=== PATIENT | male | born 1955 | race Caucasian/White ===

== ENCOUNTER 2024-10-13 18:55 | Observation (INO) ==
[2024-10-13 19:32] LABS: Albumin Globulin Ratio 2.1 (0.9-2); Albumin Level 4.7 gm/dl (3.4-5.0); BUN Creatinine Ratio 15.3 (10-20); Bilirubin,Total 3.1 mg/dl (0.2-1.0); Calcium 8.9 mg/dl (8.6-10.3); Creatinine Clr Calc Pharmacy 102.3 ml/min; Globulin 2.2 gm/dl (2.5-4.0); Total Protein 6.9 gm/dl (6.0-8.3)
[2024-10-13 20:12] LABS: Hematocrit (blood only) 44.5 % (42.0-52.0); Hemoglobin 15.8 g/dl (14.0-18.0); Mean Corpuscular Hemoglobin 30.6 pg (25.0-34.0); Mean Corpuscular Hgb Conc 35.5 g/dL (32.0-36.0); Mean Corpuscular Volume 86.1 fL (80.0-100.0); Mean Platelet Volume 10.5 fL (9.4-12.4); Platelet Count 245 K/uL (130-400); RDW Coefficient of Variation 13.4 % (11.5-14.5); RDW Standard Deviation 42.4 fL (36.4-46.3); Red Blood Count 5.17 M/uL (4.70-6.10); White Blood Count 21.39 K/ul (4.8-10.8)
[2024-10-13 20:33] LABS: Basophils # (auto) 0.06 K/uL (0.00-0.20); Basophils % (auto) 0.3 %; Eosinophils # (auto) 0.01 K/uL (0.00-0.50); Immature Granulocytes # (auto) 0.08 K/uL (0.01-0.20); Immature Granulocytes % (auto) 0.4 %; Lymphocytes # (auto) 0.53 K/uL (1.20-3.40); Lymphocytes % (auto) 2.5 %; Monocytes # (auto) 1.11 K/uL (0.11-0.59); Monocytes % (auto) 5.2 %; Neutrophils % (auto) 91.6 %
[2024-10-13] MEDS: ONDANSETRON INJ 2 MG/ML 2 ML VIAL IV STA (20:52)
[2024-10-13] MEDS: MoRPHine SULFATE 4 MG/ML 1 ML CARP\\VIAL IV STA (20:52)
[2024-10-13] MEDS: SODIUM CHLORIDE 0.9% 1,000 ML IV ONE (20:55)
--- NOTE | 2024-10-13 20:57 | Emergency Department Note ---
Impression & Plan Acute appendicitis ED Provider Note Diagnosis: Acute appendicitis Disposition: Admission CHIEF COMPLAINT: Abdominal pain HPI: Patient is a 69-year-old male presenting with acute abdominal pain. Patient states symptoms have been starting over the past 2 to 3 days time. Patient states the pain is always 2-3 out of 10 but intensifies at times. Patient states nausea without vomiting. Patient states no change in bowel habitus. Patient denies any urinary symptoms testicular pain or swelling. Patient states he still has his gallbladder and appendix. Patient has no sick contacts. PAST MEDICAL HISTORY: See Below PAST SURGICAL HISTORY: See Below SOCIAL HISTORY: See Below HOME MEDICATIONS: See Below ALLERGIES: See Below VITALS: See Below PHYSICAL EXAMINATION: GENERAL: Moderate distress EYE EXAM: Normal conjunctiva. OROPHARYNX: Moist mucus membranes. Grossly normal dentition. NECK: Supple, LUNGS: Clear to auscultation. Normal chest wall mechanics. HEART: NSR ABDOMEN: Abdomen soft, moderate tenderness right lower quadrant BACK: No CVA TTP. SKIN: No rashes and no bruising. UPPER EXTREMITIES: Upper extremities are grossly normal LOWER EXTREMITIES: Grossly normal, no edema. NEURO EXAM: A&O x3,, normal speech, moves all 4 extremities PSYCH: Cooperative MEDICAL DECISION MAKING: History obtained from: Patient, ER Course: Patient is a 69-year-old male presenting with right lower quadrant abdominal pain. Patient having nausea and vomiting. Patient found to be febrile today and have a leukocytosis of 20. Patient was given IV Zosyn. Patient had CT scan performed of the abdomen and pelvis which shows acute appendicitis. Patient kept n.p.o. and discussion was had with general surgery physician resident care assistant. They reached out to the on-call attending surgeon and plan for appendectomy tonight. Patient accepted to their service further treatment and evaluation Labs (independently interpreted) are significant for: Leukocytosis Medications given: Normal saline, morphine, Zofran, Zosyn Consultants: Dr. Pascual Triage Nursing notes reviewed and agree them. Vital Signs: reviewed and remarkable for: no significant abnormalities Past Med/Surg History Problem List (Updated 10/14/24 @ 00:29 by Ming Zapata DO) Acute appendicitis (Acute) Appendicitis Other obesity due to excess calories BMI 33.0-33.9,adult HTN, goal below 140/90 Idiopathic polyneuropathy Chronic insomnia BPH (benign prostatic hyperplasia) Copper deficiency Vitamin D deficiency Hypermagnesemia Hyperlipidemia Left knee DJD Surgical History S/P vasectomy History of prostate surgery REMOVAL PER PT S/P rotator cuff surgery S/P wisdom tooth extraction Family History Father Myocardial infarction Mother Hypertension Denies family history of Ovarian cancer Prostate cancer Diabetes Breast cancer Colorectal cancer Social History Smoking Status: Never smoker Do You Dip or Chew Tobacco: No; Hx Alcohol Use: No Hx Substance Use: No Preferred Language: Singaporean Communication Ability: Effective Visual Impairment: No Limitations Hearing Ability: Use of Hearing Aid marital status: Current Living Situation: Spouse Current Living Situation Comment: lives with current occupational status: employed current occupation: professor [employer] Feels Safe at Home: Yes Childhood Exposure to Second-Hand Smoke: No Diet: regular caffeine: Yes Dental Care, Regularly: Yes Physical Activity Frequency: Does not Exercise Seatbelt Use: always Sunscreen Use: Yes Allergies Allergies Allergy/AdvReac Type Severity Reaction Status Date / Time tadalafil [From Cialis] Allergy Severe leg pain Verified 10/13/24 23:13 vardenafil [From Levitra] Allergy Intermediate leg pain Verified 10/13/24 09:40 temazepam [From Restoril] Allergy Unknown Swelling Verified 10/13/24 09:40 of Lip/Tongue/Throat gabapentin AdvReac Unknown Dizziness Verified 10/13/24 09:40 [id number] Reductase AdvReac Unknown Dizziness Verified 10/13/24 09:40 Inhibitor Home Meds Home Medications Medication Instructions Recorded Confirmed alpha lipoic acid 600 mg capsule 600 mg PO DAILY 12/25/23 10/13/24 chlorhexidine gluconate 0.12 % 15 ml buccal DAILY 12/25/23 10/13/24 mouthwash cholecalciferol (vitamin D3) 125 125 mcg PO DAILY 12/25/23 10/13/24 mcg (5,000 unit) capsule melatonin 10 mg capsule 10 mg PO HS PRN 12/25/23 10/13/24 mecobalamin (vitamin B12) 500 mcg mcg PO 04/01/24 10/13/24 chewable tablet evolocumab 140 mg/mL subcutaneous mg subcut 10/03/24 10/13/24 pen injector (Astrid Negrete) Previous Rx's Medication Instructions Recorded bupropion HCl 150 mg tablet,12 hr 150 mg PO QAM #90 ea 04/01/24 sustained-release ezetimibe 10 mg tablet 10 mg PO DAILY #90 tabs 06/02/24 benzonatate 100 mg capsule See Rx Instructions .Route 07/21/24 .COMPLEX cough #30 caps trazodone 100 mg tablet 100 mg PO DAILY #30 tabs 07/29/24 losartan 50 mg tablet 50 mg PO DAILY #90 tabs 08/18/24 magnesium glycinate 200 mg (2 x 100 mg magnesium) PO 08/22/24 DAILY #30 caps doxycycline hyclate 100 mg capsule 100 mg PO BID 10 days #20 caps 10/13/24 Results & Data (ED) Vital Signs Vital Signs - 24 hr 10/13/24 18:59 10/13/24 20:31 10/13/24 20:32 Temperature 36.9 C Temperature Source Oral Pulse Rate 109 H 115 H Pulse Rate [Apical] 116 H Respiratory Rate 18 16 Respiratory Effort / Characteristics Non-Labored Spontaneous Non-Labored Spontaneous Respiratory Depth Normal Respiratory Pattern Regular Blood Pressure 131/73 Blood Pressure [Right Arm] 149/82 H Blood Pressure Mean 92 Blood Pressure Mean [Right Arm] 104 Blood Pressure Position Sitting Pulse Oximetry 95 94 Oxygen Delivery Method Room Air Room Air Sepsis Recent Fever Within 48 Hours No Sepsis New/Unexplained Change in Mental Status N/A Sepsis Action Taken by Nursing No Action Required 10/13/24 21:46 10/13/24 22:21 10/14/24 00:00 Temperature 39.4 C H 37.9 C H 36.8 C Temperature Source Oral Oral Oral Pulse Rate Pulse Rate [Apical] 112 H Respiratory Rate 16 Respiratory Effort / Characteristics Respiratory Depth Respiratory Pattern Blood Pressure Blood Pressure [Right Arm] 127/80 Blood Pressure Mean Blood Pressure Mean [Right Arm] 95 Blood Pressure Position Pulse Oximetry 93 Oxygen Delivery Method Room Air Sepsis Recent Fever Within 48 Hours Sepsis New/Unexplained Change in Mental Status Sepsis Action Taken by Nursing Laboratory Data 10/13/24 19:05 10/13/24 19:05 Lab Results 10/13/24 10/13/24 10/13/24 Range/Units 19:05 20:46 21:42 WBC 21.39 H (4.8-10.8) K/ul RBC 5.17 (4.70-6.10) M/uL Hgb 15.8 (14.0-18.0) g/dl Hct 44.5 (42.0-52.0) % MCV 86.1 (80.0-100.0) fL MCH 30.6 (25.0-34.0) pg MCHC 35.5 (32.0-36.0) g/dL RDW Std Deviation 42.4 (36.4-46.3) fL RDW Coeff of Artur 13.4 (11.5-14.5) % Plt Count 245 (130-400) K/uL MPV 10.5 (9.4-12.4) fL Immature Gran % (Auto) 0.4 % Neut % (Auto) 91.6 % Lymph % (Auto) 2.5 % [place] % (Auto) 5.2 % Eos % (Auto) 0.0 % Baso % (Auto) 0.3 % Neut # (Auto) 19.60 H (1.40-6.50) K/uL Lymph # (Auto) 0.53 L (1.20-3.40) K/uL [place] # (Auto) 1.11 H (0.11-0.59) K/uL Eos # (Auto) 0.01 (0.00-0.50) K/uL Baso # (Auto) 0.06 (0.00-0.20) K/uL Immature Gran # (Auto) 0.08 (0.01-0.20) K/uL PT 12.1 H (9.0-12.0) Seconds INR 1.1 (0.9-1.1) APTT 33 H (21-31) Seconds PTT Ratio 1.2 Sodium 130 L (136-145) mmol/L Potassium 4.0 (3.5-5.1) mmol/L Chloride 99 (98-107) mmol/L Carbon Dioxide 24 (21-32) mmol/L Anion Gap 7 (3-11) BUN 11 (6-23) mg/dl Creatinine 0.72 (0.6-1.4) mg/dl Est Cr Clr Drug Dosing 102.3 ml/min eGFR 98.90 BUN/Creatinine Ratio 15.3 (10-20) Glucose 107 H (70-99(Fasting)) mg/dl Calcium 8.9 (8.6-10.3) mg/dl Total Bilirubin 3.1 H (0.2-1.0) mg/dl AST 24 (13-39) U/L ALT 24 (7-52) U/L Alkaline Phosphatase 54 (34-104) U/L Total Protein 6.9 (6.0-8.3) gm/dl Albumin 4.7 (3.4-5.0) gm/dl Globulin 2.2 L (2.5-4.0) gm/dl Albumin/Globulin Ratio 2.1 H (0.9-2) Lipase 8 L (11-82) U/L Urine Color Yellow Urine Appearance Clear (Clear) Urine pH 7.5 (4.5-7.5) Ur Specific [place] > 1.045 H (1.000-1.030) Urine Protein 1+ H (Negative) Urine Glucose (UA) Negative (Negative) Urine Ketones 2+ H (Negative) Urine Blood 1+ H (Negative) Urine Nitrite Negative (Negative) Urine Bilirubin Negative (Negative) Urine Urobilinogen Positive H (Negative) Ur Leukocyte Esterase Negative (Negative) Urine WBC (Auto) 0-5 (0-5) /hpf Urine RBC (Auto) 11-20 H (0-2) /hpf U Hyaline Cast (Auto) 0-2 (0-2) /lpf U Epithel Cells (Auto) 0-2 (0-2) /hpf Urine Bacteria (Auto) None Seen (None Seen) Anaplasma Smear See Comment Babesia Smear See Comment Lyme Disease Screen Negative (Negative) Administered Medications Discontinued Medications Sodium Chloride (Nss) 1,000 mls @ 999 mls/hr IV .Q1H1M ONE Stop: 10/13/24 21:46 Last Admin: 10/13/24 20:55 Dose: 999 mls/hr Documented By: TOM Acetaminophen (Ofirmev) 1,000 mg in 100 mls @ 400 mls/hr IV NOW STA Stop: 10/13/24 22:01 Last Infusion: 10/13/24 22:22 Dose: Infused Documented By: Admin: 10/13/24 22:05 Dose: 400 mls/hr Documented By: TOM Piperacillin Sod/Tazobactam Sod (Zosyn) 4.5 gm in 100 mls @ 200 mls/hr IV NOW ONE; Protocol Stop: 10/13/24 23:22 Last Admin: 10/13/24 23:36 Dose: 200 mls/hr Documented By: LORRI Ioversol (Optiray 320 100ml) 93 ml IV ONCE ONE Stop: 10/13/24 21:24 Last Admin: 10/13/24 21:23 Dose: 93 ml Documented By: LULU Morphine Sulfate (Morphine Sulfate 4 Mg/Ml 1 Ml Carp\Vial) 4 mg IV NOW STA Stop: 10/13/24 20:47 Last Admin: 10/13/24 20:52 Dose: 4 mg Documented By: TOM Ondansetron HCl (Ondansetron Inj 2 Mg/Ml 2 Ml Vial) 4 mg IV NOW STA Stop: 10/13/24 20:47 Last Admin: 10/13/24 20:52 Dose: 4 mg Documented By: TOM Imaging Data Radiologist's Impression: Abdomen/Pelvis CT 10/13/24 20:46 CR Exam(s): CT ABDOMEN + PELVIS With Contrast IV Amt: 93ml optiray 320 EXAM: CT Abdomen and Pelvis With Intravenous Contrast CLINICAL HISTORY: Reason for exam: RLQ pain, leukocytosis. TECHNIQUE: Axial computed tomography images of the abdomen and pelvis with intravenous contrast. CTDI is 27.7 mGy and DLP is 1314 mGy-cm. Automated exposure control was utilized for the study. A dose lowering technique was utilized adhering to the principles of ALARA. CONTRAST: Patient received 93ml optiray 320 of IV contrast COMPARISON: No relevant prior studies available. FINDINGS: Lung bases: Unremarkable. No mass. No consolidation. ABDOMEN: Liver: Unremarkable. No mass. Gallbladder and bile ducts: Unremarkable. No calcified stones. No ductal dilation. Pancreas: Unremarkable. No mass. No ductal dilation. Spleen: Unremarkable. No splenomegaly. Adrenals: Unremarkable. No mass. Kidneys and ureters: Unremarkable. No solid mass. No hydronephrosis. Stomach and bowel: Scattered gas fluid levels within nondilated small bowel as well as the right colon consistent with mild ileus. No mucosal thickening. PELVIS: Appendix: There is an appendicolith at the base of the appendix. The appendix is dilated to 14 mm with surrounding fat stranding characteristic of acute appendicitis. No signs of rupture or abscess. Bladder: Unremarkable. No mass. Reproductive: Unremarkable as visualized. ABDOMEN and PELVIS: Intraperitoneal space: Unremarkable. No free air. No significant fluid collection. Bones/joints: Mild degenerative changes throughout the spine. No acute fracture or subluxation is seen. Soft tissues: Unremarkable. Vasculature: Eval aorta is mildly calcified but nondilated. Lymph nodes: Unremarkable. No enlarged lymph nodes. IMPRESSION: 1. There is an appendicolith at the base of the appendix. The appendix is dilated to 14 mm with surrounding fat stranding characteristic of acute appendicitis. No signs of rupture or abscess. 2. Scattered gas fluid levels within nondilated small bowel as well as the right colon consistent with mild ileus. Communications: Call Doctor Appendicitis Electronically signed by: Ren Zapata MD 10/13/24 22:50 PM Discharge Plan Visit Data Chief Complaint: Abdominal Pain Stated Complaint: LOWER ABD PAIN ED Provider: Ming Zapata Discharge Problem: Acute appendicitis Forms Stand Alone Forms: My [facility] Prescriptions Prescriptions: No Action ezetimibe 10 mg tablet 10 mg PO DAILY Qty: 90 1RF benzonatate 100 mg capsule See Rx Instructions .Route .COMPLEX Qty: 30 0RF Rx Instructions: take one to two tablets three times a day for cough (may make you sleepy) trazodone 100 mg tablet 100 mg PO DAILY Qty: 30 2RF magnesium glycinate 100 mg magnesium capsule 200 mg PO DAILY Qty: 30 0RF Repatha SureClick 140 mg/mL pen injector subcut mecobalamin (vitamin B12) 500 mcg tablet,chewable PO bupropion HCl 150 mg tablet sustained-release 12 hr 150 mg PO QAM Qty: 90 3RF doxycycline hyclate 100 mg capsule 100 mg PO BID 10 Days Qty: 20 0RF melatonin 10 mg capsule 10 mg PO HS PRN alpha lipoic acid 600 mg capsule 600 mg PO DAILY chlorhexidine gluconate 0.12 % mouthwash 15 ml buccal DAILY cholecalciferol (vitamin D3) 125 mcg (5,000 unit) capsule 125 mcg PO DAILY losartan 50 mg tablet 50 mg PO DAILY Qty: 90 2RF Referrals Referrals: Kelin Murray MD [Primary Care Provider] -
[2024-10-13] MEDS: OPTIRAY 320 100ml IV ONE (21:23)
[2024-10-13 22:05] LABS: Appearance Urine Clear (Clear); Bacteria Urine Automated None Seen (None Seen); Bilirubin Urine Negative (Negative); Blood Urine 1+ (Negative); Cast Urine Automated 0-2 /lpf (0-2); Color Urine Yellow; Epithelial Cell Urine Auto 0-2 /hpf (0-2); Glucose Urine UA Negative (Negative); Ketones Urine 2+ (Negative); Leukocyte Esterase Urine Negative (Negative); Nitrite Urine Negative (Negative); Protein Urine 1+ (Negative); Specific Gravity Urine > 1.045 (1.000-1.030); Urobilinogen Urine Positive (Negative); WBC Urine Automated 0-5 /hpf (0-5); pH Urine 7.5 (4.5-7.5)
[2024-10-13] MEDS: ACETAMINOPHEN 1,000 MG/100 ML VIAL IV STA (22:05)
--- NOTE | 2024-10-13 22:51 | CT Scan Report ---
Exam(s): CT ABDOMEN + PELVIS With Contrast IV Amt: 93ml optiray 320 EXAM: CT Abdomen and Pelvis With Intravenous Contrast CLINICAL HISTORY: Reason for exam: RLQ pain, leukocytosis. TECHNIQUE: Axial computed tomography images of the abdomen and pelvis with intravenous contrast. CTDI is 27.7 mGy and DLP is 1314 mGy-cm. Automated exposure control was utilized for the study. A dose lowering technique was utilized adhering to the principles of ALARA. CONTRAST: Patient received 93ml optiray 320 of IV contrast COMPARISON: No relevant prior studies available. FINDINGS: Lung bases: Unremarkable. No mass. No consolidation. ABDOMEN: Liver: Unremarkable. No mass. Gallbladder and bile ducts: Unremarkable. No calcified stones. No ductal dilation. Pancreas: Unremarkable. No mass. No ductal dilation. Spleen: Unremarkable. No splenomegaly. Adrenals: Unremarkable. No mass. Kidneys and ureters: Unremarkable. No solid mass. No hydronephrosis. Stomach and bowel: Scattered gas fluid levels within nondilated small bowel as well as the right colon consistent with mild ileus. No mucosal thickening. PELVIS: Appendix: There is an appendicolith at the base of the appendix. The appendix is dilated to 14 mm with surrounding fat stranding characteristic of acute appendicitis. No signs of rupture or abscess. Bladder: Unremarkable. No mass. Reproductive: Unremarkable as visualized. ABDOMEN and PELVIS: Intraperitoneal space: Unremarkable. No free air. No significant fluid collection. Bones/joints: Mild degenerative changes throughout the spine. No acute fracture or subluxation is seen. Soft tissues: Unremarkable. Vasculature: Eval aorta is mildly calcified but nondilated. Lymph nodes: Unremarkable. No enlarged lymph nodes. IMPRESSION: 1. There is an appendicolith at the base of the appendix. The appendix is dilated to 14 mm with surrounding fat stranding characteristic of acute appendicitis. No signs of rupture or abscess. 2. Scattered gas fluid levels within nondilated small bowel as well as the right colon consistent with mild ileus. Communications: Call Doctor Appendicitis Electronically signed by: Ren Zapata MD 10/13/24 22:50 PM
[2024-10-13] MEDS ORDERED: HYDROmorphone INJ 1 MG/ML SYRINGE IV PRN (23:21)
[2024-10-13] MEDS ORDERED: ONDANSETRON INJ 2 MG/ML 2 ML VIAL IV PRN ×2 (23:21→23:28)
[2024-10-13] MEDS ORDERED: ATROPINE SULFATE 0.1 MG/ML 10ML SYR IV PRN (23:21)
[2024-10-13] MEDS ORDERED: ePHEDrine sulfate 50 MG/ML AMP IV PRN (23:21)
[2024-10-13] MEDS ORDERED: fentaNYL citrate PF 100 MCG/2 ML VIAL IV PRN (23:21)
--- NOTE | 2024-10-13 23:21 | Anesthesiology Consultation ---
Date of Service October 13, 2024 Assessment & Plan Chart Review Chart Review: Acceptable Risk for Surgery, Patient NOT seen in Pre Admission Testing and journal entry audit clerk initiated Consults Requested none History Height/Weight Height: 5 ft 8 in Weight: 84.1 kg Allergies Allergy/AdvReac Type Severity Reaction Status Date / Time tadalafil [From Cialis] Allergy Severe leg pain Verified 10/13/24 23:13 vardenafil [From Levitra] Allergy Intermediate leg pain Verified 10/13/24 09:40 temazepam [From Restoril] Allergy Unknown Swelling Verified 10/13/24 09:40 of Lip/Tongue/Throat gabapentin AdvReac Unknown Dizziness Verified 10/13/24 09:40 [id number] Reductase AdvReac Unknown Dizziness Verified 10/13/24 09:40 Inhibitor Medications Home Medications Medication Instructions Recorded Confirmed Last Taken alpha lipoic acid 600 mg capsule 600 mg PO DAILY 12/25/23 10/13/24 Unknown chlorhexidine gluconate 0.12 % 15 ml buccal DAILY 12/25/23 10/13/24 Unknown mouthwash cholecalciferol (vitamin D3) 125 125 mcg PO DAILY 12/25/23 10/13/24 Unknown mcg (5,000 unit) capsule melatonin 10 mg capsule 10 mg PO HS PRN 12/25/23 10/13/24 Unknown bupropion HCl 150 mg tablet,12 hr 150 mg PO QAM #90 ea 04/01/24 10/13/24 Unknown sustained-release mecobalamin (vitamin B12) 500 mcg mcg PO 04/01/24 10/13/24 Unknown chewable tablet ezetimibe 10 mg tablet 10 mg PO DAILY #90 tabs 06/02/24 10/13/24 Unknown benzonatate 100 mg capsule See Rx Instructions .Route 07/21/24 10/13/24 Unknown .COMPLEX cough #30 caps trazodone 100 mg tablet 100 mg PO DAILY #30 tabs 07/29/24 10/13/24 Unknown losartan 50 mg tablet 50 mg PO DAILY #90 tabs 08/18/24 10/13/24 Unknown magnesium glycinate 200 mg (2 x 100 mg magnesium) PO 08/22/24 10/13/24 Unknown DAILY #30 caps evolocumab 140 mg/mL subcutaneous mg subcut 10/03/24 10/13/24 Unknown pen injector (Repatha SureClick) doxycycline hyclate 100 mg capsule 100 mg PO BID 10 days #20 caps 10/13/24 10/13/24 Unknown Past Family History Family History Father Myocardial infarction Mother Hypertension Denies family history of Ovarian cancer Prostate cancer Diabetes Breast cancer Colorectal cancer Past Surgical History Surgical History S/P vasectomy History of prostate surgery REMOVAL PER PT S/P rotator cuff surgery S/P wisdom tooth extraction Social History Smoking Status: Never smoker Do You Dip or Chew Tobacco: No Hx Alcohol Use: No Hx Substance Use: No Physical Exam Vital Signs Last Vital Signs Temp 37.9 C H 10/13/24 22:21 Pulse 112 H 10/13/24 21:46 Resp 16 10/13/24 21:46 BP 127/80 10/13/24 21:46 Pulse Ox 93 10/13/24 21:46 O2 Del Method Room Air 10/13/24 21:46 Testing Laboratory Results 10/13/24 19:05 10/13/24 19:05 Urine Color Yellow 10/13/24 21:42 Urine Appearance Clear (Clear) 10/13/24 21:42 Urine pH 7.5 (4.5-7.5) 10/13/24 21:42 Ur Specific [place] > 1.045 (1.000-1.030) H 10/13/24 21:42 Urine Protein 1+ (Negative) H 10/13/24 21:42 Urine Glucose (UA) Negative (Negative) 10/13/24 21:42 Urine Ketones 2+ (Negative) H 10/13/24 21:42 Urine Nitrite Negative (Negative) 10/13/24 21:42 Ur Leukocyte Esterase Negative (Negative) 10/13/24 21:42 Urine WBC (Auto) 0-5 /hpf (0-5) 10/13/24 21:42 Urine RBC (Auto) 11-20 /hpf (0-2) H 10/13/24 21:42 U Hyaline Cast (Auto) 0-2 /lpf (0-2) 10/13/24 21:42 U Epithel Cells (Auto) 0-2 /hpf (0-2) 10/13/24 21:42 Urine Bacteria (Auto) None Seen (None Seen) 10/13/24 21:42 Electrocardiogram Date: 08/15/22 Findings: + ST @ (103) Echocardiogram Date: 04/30/22 LV Function: normal Valvular Disease: + no significant valvular disease
[2024-10-13] MEDS ORDERED: ACETAMINOPHEN 1,000 MG/100 ML VIAL IV PRN (23:28)
[2024-10-13] MEDS ORDERED: MoRPHine SULFATE 4 MG/ML 1 ML CARP\\VIAL IV PRN (23:28)
--- NOTE | 2024-10-13 23:28 | History & Physical Report ---
Date of Service October 13, 2024 Assessment & Plan (1) Appendicitis: Plan: Given the patient's clinical presentation, laboratory findings, as well as CT scan findings he will be admitted to the surgical service proceeding as follows: Will maintain n.p.o. status We will initiate antibiotics in the form of Zosynthe first dose has been ordered by the treating emergency room physician Will hydrate with IV fluids Analgesics to be provided Antiemetics we provided Will tentatively plan on having the patient undergo an appendectomy with Dr. Anuj Pascual of [facility] physician group general surgery soon as the OR is available this evening We will check a baseline EKG Will check a preoperative chest x-ray We will check coagulation studies SCDs to be used for DVT prevention, no chemical means due to planned surgery He will be a level 1 full code as above. clinical exam c/w acute appendicitis. in light of the findings, high leukocytosis, appendicoliths, and pt's age I believe we should perform the appendectomy cathy. discussed risks/options. answered all questions. will proceed with lap appendectomy tonight. History of Present Illness Chief Complaint: Abdominal pain Primary Care Provider: Kelin Murray MD He notes the pain is primarily confined to the right lower quadrant. He has had fevers but he denies any nausea or vomiting. Patient says that the pain is improved when he lies still and is worse with certain movements. He says that he did have a prostate procedure in the past but from his description it sounds as though he he had a transurethral resection of the prostate. He notes his most recent oral intake was a ham sandwich at approximate 12:00 PM on 10/14/19. He said he did have a sip of water at 6:30 PM. This is a 69-year-old male who presented to the emergency department secondary to abdominal pain that began 2 days ago. Since arrival to the emergency department this patient has had labs and imaging which independent reviewed. CBC revealed white blood cell count was elevated 21.3. Hemoglobin and hematocrit as well as platelet count were normal. Chemistry profile showed sodium was 130 with a potassium of 4.0. BUN and creatinine were both noted to be normal. Urinalysis was not indicative of infection. The patient underwent a CT scan of the abdomen pelvis that showed he had an appendicolith at the base of the appendix and the appendix was dilated to approximately 14 mm with surrounding fat stranding which interpreting radiologist felt was indicative of acute appendicitis. There is no evidence of rupture or abscess. At the time of my interview he was resting comfortably in bed he is in no distress. Allergies Allergy/AdvReac Type Severity Reaction Status Date / Time tadalafil [From Cialis] Allergy Severe leg pain Verified 10/13/24 23:13 vardenafil [From Levitra] Allergy Intermediate leg pain Verified 10/13/24 09:40 temazepam [From Restoril] Allergy Unknown Swelling Verified 10/13/24 09:40 of Lip/Tongue/Throat gabapentin AdvReac Unknown Dizziness Verified 10/13/24 09:40 [id number] Reductase AdvReac Unknown Dizziness Verified 10/13/24 09:40 Inhibitor Home Medications Medication Instructions Recorded Confirmed Type alpha lipoic acid 600 mg capsule 600 mg PO DAILY 12/25/23 10/13/24 History chlorhexidine gluconate 0.12 % 15 ml buccal DAILY 12/25/23 10/13/24 History mouthwash cholecalciferol (vitamin D3) 125 125 mcg PO DAILY 12/25/23 10/13/24 History mcg (5,000 unit) capsule melatonin 10 mg capsule 10 mg PO HS PRN 12/25/23 10/13/24 History bupropion HCl 150 mg tablet,12 hr 150 mg PO QAM #90 ea 04/01/24 10/13/24 Rx sustained-release mecobalamin (vitamin B12) 500 mcg mcg PO 04/01/24 10/13/24 History chewable tablet ezetimibe 10 mg tablet 10 mg PO DAILY #90 tabs 06/02/24 10/13/24 Rx benzonatate 100 mg capsule See Rx Instructions .Route 07/21/24 10/13/24 Rx .COMPLEX cough #30 caps trazodone 100 mg tablet 100 mg PO DAILY #30 tabs 07/29/24 10/13/24 Rx losartan 50 mg tablet 50 mg PO DAILY #90 tabs 08/18/24 10/13/24 Rx magnesium glycinate 200 mg (2 x 100 mg magnesium) PO 08/22/24 10/13/24 Rx DAILY #30 caps evolocumab 140 mg/mL subcutaneous mg subcut 10/03/24 10/13/24 History pen injector (Astrid Negrete) doxycycline hyclate 100 mg capsule 100 mg PO BID 10 days #20 caps 10/13/24 10/13/24 Rx Past Med/Surg History Problem List (Updated 10/13/24 @ 23:27 by Jacobo Black PA-C) Appendicitis Other obesity due to excess calories BMI 33.0-33.9,adult HTN, goal below 140/90 Idiopathic polyneuropathy Chronic insomnia BPH (benign prostatic hyperplasia) Copper deficiency Vitamin D deficiency Hypermagnesemia Hyperlipidemia Left knee DJD Surgical History S/P vasectomy History of prostate surgery REMOVAL PER PT S/P rotator cuff surgery S/P wisdom tooth extraction Family History Father Myocardial infarction Mother Hypertension Denies family history of Ovarian cancer Prostate cancer Diabetes Breast cancer Colorectal cancer Social History Smoking Status: Never smoker Do You Dip or Chew Tobacco: No; Hx Alcohol Use: No Hx Substance Use: No Preferred Language: Kittitian Communication Ability: Effective Visual Impairment: No Limitations Hearing Ability: Use of Hearing Aid marital status: Current Living Situation: Spouse Current Living Situation Comment: lives with current occupational status: employed current occupation: professor [employer] Feels Safe at Home: Yes Childhood Exposure to Second-Hand Smoke: No Diet: regular caffeine: Yes Dental Care, Regularly: Yes Physical Activity Frequency: Does not Exercise Seatbelt Use: always Sunscreen Use: Yes Review of Systems Review of Systems: All systems reviewed & are unremarkable except as noted in HPI & below Physical Exam Constitutional: WD/WN, vitals as above Eyes: no conjunctival abnormality ENMT: Ears: no hearing impairment and no external ear abnormality Mouth: no oropharynx abnormality Neck: trachea midline Respiratory: normal respiratory effort; no respiratory distress and no labored breathing Cardiovascular: Rate/Rhythm: regular rate and regular rhythm Gastrointestinal (Abdomen): Patient's abdomen is soft without distention. Patient had exquisite tenderness in the right lower quadrant of McBurney's point Musculoskeletal: No calf tenderness Skin: no rashes Neurologic: moves all extremities Psychiatric: A+Ox3, euthymic affect Results & Data Results & Data Vital Signs (Past 12 Hours) Vital Signs Temp Pulse Pulse Resp BP BP Pulse Ox 10/13/24 22:21 37.9 C H 10/13/24 21:46 39.4 C H 112 H 16 127/80 93 10/13/24 20:32 115 H 10/13/24 20:31 116 H 16 149/82 H 94 10/13/24 18:59 36.9 C 109 H 18 131/73 95 O2 Del Method 10/13/24 22:21 10/13/24 21:46 Room Air 10/13/24 20:32 10/13/24 20:31 Room Air 10/13/24 18:59 Room Air PG Care Time/CCT Total # of Minutes Spent Total Time Spent with Patient: Total time spent is greater than 50% in coordination of care (as documented) at patient's floor/unit and/or counseling patient: Coding Level of Care Code 50139 INT INP/OBS CARE 3/75MIN Diagnoses Appendicitis K37
[2024-10-13] MEDS ORDERED: KETOROLAC 30 MG/ML VIAL ONE (23:31)
[2024-10-13] MEDS ORDERED: PROPOFOL IV EMULSION 10 MG/ML 20 ML VIAL IV ONE (23:31)
[2024-10-13] MEDS ORDERED: fentaNYL citrate PF 100 MCG/2 ML VIAL ONE (23:31)
[2024-10-13] MEDS ORDERED: ONDANSETRON INJ 2 MG/ML 2 ML VIAL ONE (23:31)
[2024-10-13] MEDS ORDERED: LIDOCAINE 2% 2 ML VIAL/AMP(20MG/ML) INFIL ONE (23:31)
[2024-10-13] MEDS ORDERED: DEXAMETHASONE SOD INJ 4 MG/ML VIAL ONE (23:31)
[2024-10-13] MEDS ORDERED: SUCCINYLCHOLINE CHLORIDE 20 MG/ML 10 ML VIAL IV ONE (23:31)
[2024-10-13] MEDS ORDERED: ROCURONIUM BROMIDE 10 MG/ML 5 ML VIAL IV ONE (23:31)
[2024-10-13] MEDS: PIPERACILLIN/TAZOBACTAM 4.5 GM/100 ML BAG IV ONE (23:36)
[2024-10-14 00:09] LABS: INR 1.1 (0.9-1.1); Partial Thromboplastin Ratio 1.2; Partial Thromboplastin Time 33 Seconds (21-31); Prothrombin Time 12.1 Seconds (9.0-12.0)
[2024-10-14] MEDS ORDERED: SUGAMMADEX SODIUM 200 MG/2 ML VIAL IV ONE (01:21)
--- NOTE | 2024-10-14 01:27 | XRay Report ---
EXAM: XR chest 1V portable CLINICAL HISTORY: PRE OP. DENIES CHEST COMPLAINTS JMF. TECHNIQUE: An X-ray image of the chest is obtained in AP projection. COMPARISON: Chest x-ray dated 07/13/2024. FINDINGS: Pulmonary Parenchyma: Lungs are clear bilaterally. No evidence of consolidation, collapse, or focal opacities. No pulmonary nodules are identified. No evidence of pleural effusion or pleural thickening. Heart and Mediastinum: Heart size and shape are normal. No mediastinal widening or masses. No hilar or mediastinal lymphadenopathy. Bony Thorax: Bony thorax appears intact without fractures or deformities. Soft Tissues: Soft tissues overlying the chest wall are unremarkable. IMPRESSION: - Normal chest X-ray. (unchanged) - No acute cardiopulmonary abnormalities are identified. Electronically signed by Navdeep Naranjo 10-14-2024 01:26 AM
[2024-10-14] MEDS ORDERED: fentaNYL citrate PF 100 MCG/2 ML VIAL ONE (01:31)
[2024-10-14] MEDS: BUPIVACAINE/EPINEPHRINE 0.5% MPF 1:200,000 30 ML VIAL ONE (01:33)
[2024-10-14] MEDS: SODIUM CHLORIDE 0.9% 1,000 ML IV SCH (02:37)
[2024-10-14] MEDS: PIPERACILLIN/TAZOBACTAM 4.5 GM/100 ML BAG IV SCH (05:11)
[2024-10-14 06:09] LABS: Hemoglobin 14.1 g/dl (14.0-18.0); Mean Corpuscular Hemoglobin 30.7 pg (25.0-34.0); Mean Corpuscular Hgb Conc 34.4 g/dL (32.0-36.0); Mean Corpuscular Volume 89.3 fL (80.0-100.0); Mean Platelet Volume 10.3 fL (9.4-12.4); Platelet Count 195 K/uL (130-400); RDW Coefficient of Variation 13.7 % (11.5-14.5); RDW Standard Deviation 44.9 fL (36.4-46.3); Red Blood Count 4.59 M/uL (4.70-6.10); White Blood Count 17.89 K/ul (4.8-10.8)
[2024-10-14 06:23] LABS: BUN Creatinine Ratio 18.8 (10-20); Calcium 7.8 mg/dl (8.6-10.3); Creatinine Clr Calc Pharmacy 115.1 ml/min; Potassium 4.1 mmol/L (3.5-5.1)
[2024-10-14 06:35] LABS: Basophils # (auto) 0.02 K/uL (0.00-0.20); Basophils % (auto) 0.1 %; Dohle Bodies 1+; Echinocytes 1+; Immature Granulocytes # (auto) 0.15 K/uL (0.01-0.20); Immature Granulocytes % (auto) 0.8 %; Lymphocytes # (auto) 0.36 K/uL (1.20-3.40); Monocytes # (auto) 0.83 K/uL (0.11-0.59); Monocytes % (auto) 4.6 %; Neutrophils # (auto) 16.53 K/uL (1.40-6.50); Neutrophils % (auto) 92.5 %; Polychromasia 1+; Toxic Vacuolation 1+
--- NOTE | 2024-10-14 07:32 | Operative Report ---
PG Post Operative Report Pre & Post Diagnosis Operation Date: 10/13/24 11:45 Pre-Op Diagnosis: Appendicitis Post-Op Diagnosis: Appendicitis;perforated I identified the patient and participated in the time-out.: Yes Procedure Operation Date: 10/13/24 11:45 Actual Procedures p Laparoscopic Appendectomy(Not Applicable) - Brendan Pascual DO Surgeon Brendan Pascual DO Die Sinking Machine Operator zach Black Estimated Blood Loss 25 Findings Consistent with Post-Op Diagnosis Specimens appendix Description of Procedure After informed consent was obtained the patient was taken to the operating room and placed in supine position. After successful intubation the abdomen was shaved sterilely prepped and draped in usual fashion. I began with a supraumbilical incision. This was carried down through the soft tissue using cautery. Anterior fascia was opened using cautery and two #0 Vicryl stay sutures were placed. Peritoneum was elevated with hemostats and incised under direct vision using a Metzenbaum scissor. Finger sweep was performed. A 12 mm Gandhi trocar was placed and the abdomen was insufflated to 18 mmHg. The laparoscope was inserted and the abdomen examined 360 degrees. There was a lot of rather severe inflammation in the right lower quadrant involving the peritoneum, cecum, terminal ileum and omentum. I placed a suprapubic 5 mm port and a left lower quadrant 12 mm port under direct vision. The patient was placed in a Trendelenburg position and slightly airplaned to the left. I began examining right lower quadrant. All of the soft tissue surrounding the appendix was severely inflamed. I was able to gently roledl the cecum medially exposing an extremely inflamed appendix. I was able to grasp the base of the appendix and make a small window in the mesentery using a right angle grasper. A DEIDRA purple cartridge stapler was used to transect the appendix right at its base with the cecum. The mesentery itself was too inflamed and foreshortened to divided with a stapler. I therefore used a harmonic scalpel to slowly come through the mesentery of the appendix. As we did this became readily apparent that the appendix had perforated posteriorly and had walled itself off. Once I remove the appendix in its entirety I placed it into an Endo Catch bag. We then thoroughly irrigated the right lower quadrant as well as pelvis with multiple liters of warm irrigation. Other than the local inflammation no other gross abnormalities were noted. There was adequate hemostasis at the end of the case. A 10 flat Macairo-Qureshi drain was brought in through the left lower quadrant incision and placed into the pelvis and angled towards the right lower quadrant. It was secured to the skin using 0 Vicryl. The remainder of the trocars were removed and the abdomen desufflated. The fascia of the camera port was closed using 0 Vicryl in [id number] fashion. All wounds were irrigated. Marcaine with epinephrine were injected around the incisions for postoperative analgesia. Dermabond glue was used as a dressing. The patient was waken extubated and transferred to recovery in stable condition. My physician special events assistant was present the entire case was instrumental in providing exposure, running the camera, assisting with wound closure and dressing placement. I attest to the content of the Intraoperative Record and any orders documented therein. Any exceptions are noted below.
[2024-10-14 08:13] LABS: Albumin Level 3.7 gm/dl (3.4-5.0); Bilirubin Direct 0.6 mg/dl (0-0.2); Bilirubin,Total 3.1 mg/dl (0.2-1.0); Total Protein 5.9 gm/dl (6.0-8.3)
[2024-10-14] MEDS: DOXYCYCLINE HYCLATE 100 MG CAP PO SCH (08:19)
[2024-10-14] MEDS: EZETIMIBE 10 MG TAB PO SCH (08:20)
[2024-10-14] MEDS: buPROPion SR 150 MG TABCR PO SCH (08:20)
[2024-10-14] MEDS: LOSARTAN POTASSIUM 50 MG TAB PO SCH (08:20)
--- NOTE | 2024-10-14 08:30 | Surgery Progress Note ---
Date of Service October 14, 2024 Assessment & Plan (1) Acute appendicitis: Plan: POD 1 doing as expected. perforation so will keep another 24-48 hours for IV antibiotics drain will keep until d/c t bili slightly elevated however pt states he always has elevated bili...will recheck tomorrow as it is still above his baseline. DR. Ojeda covering for weekend. Admission and Anticipated Discharge Date Admission Date: October 14, 2024 Subjective pt feeling better than yesterday. no new complaints Physical Exam Physical Exam: alert. nad CELENA serous expected tenderness Results & Data Vital Signs (Past 12 Hours) Vital Signs Temp Pulse Pulse Pulse Resp BP BP 10/14/24 07:16 36.6 C 88 18 119/72 10/14/24 03:32 36.8 C 85 18 100/65 10/14/24 03:00 36.5 C 86 16 97/64 L 10/14/24 02:30 37.0 C 87 16 112/67 10/14/24 02:14 36.6 C 85 18 114/67 10/14/24 02:04 36.4 C L 88 18 103/62 10/14/24 01:54 36.7 C 85 16 90/60 L 10/14/24 00:00 36.8 C 10/13/24 22:21 37.9 C H 10/13/24 21:46 39.4 C H 112 H 16 127/80 10/13/24 20:32 115 H 10/13/24 20:31 116 H 16 149/82 H Pulse Ox O2 Del Method O2 Flow Rate 10/14/24 07:16 94 Room Air 10/14/24 03:32 93 Room Air 10/14/24 03:00 95 Room Air 10/14/24 02:30 95 Room Air 10/14/24 02:14 92 Room Air 10/14/24 02:04 93 Room Air 10/14/24 01:54 97 Oxymask 10 10/14/24 00:00 10/13/24 22:21 10/13/24 21:46 93 Room Air 10/13/24 20:32 10/13/24 20:31 94 Room Air PG Care Time/CCT Total # of Minutes Spent Total Time Spent with Patient: Total time spent is greater than 50% in coordination of care (as documented) at patient's floor/unit and/or counseling patient: Coding Level of Care Code 20404 Post Operative Follow-Up Diagnoses Acute appendicitis K35.80
[2024-10-14] MEDS ORDERED: oxyCODONE/ACETAMINOPHEN 5mg/325mg TAB PO PRN (08:44)
[2024-10-14] MEDS: oxyCODONE/ACETAMINOPHEN 5mg/325mg TAB PO PRN (13:47)
--- NOTE | 2024-10-14 14:20 | Electrocardiogram Report ---
Test Reason : Blood Pressure : */* mmHG Vent. Rate : 92 BPM Atrial Rate : 92 BPM P-R Int : 160 ms QRS Dur : 98 ms QT Int : 366 ms P-R-T Axes : 40 6 29 degrees QTcB Int : 452 ms Normal sinus rhythm Possible Left atrial enlargement Borderline ECG When compared with ECG of 16-Aug-2022 00:44, No significant change was found Confirmed by Vamshi Moscoso ([id number]) on 10/14/2024 2:20:21 PM Referred By: REFERRED SELF Confirmed By: Vamshi Moscoso
[2024-10-14] MEDS: MELATONIN 3 MG TAB PO PRN (21:29)
[2024-10-14] MEDS: traZODone HCL 100 MG TAB PO SCH (21:29)
[2024-10-15 07:10] LABS: Albumin Level 3.4 gm/dl (3.4-5.0); Bilirubin Direct 0.5 mg/dl (0-0.2); Bilirubin,Total 1.9 mg/dl (0.2-1.0); Total Protein 5.7 gm/dl (6.0-8.3)
[2024-10-15 07:11] VITALS: RESP 16; TEMP 97.9
--- NOTE | 2024-10-15 08:51 | Surgery Progress Note ---
Date of Service October 15, 2024 Assessment & Plan (1) Acute appendicitis: Plan: IV abx till tonight doing well discharge post abx tonight instructions in chart Admission and Anticipated Discharge Date Admission Date: October 14, 2024 Subjective feeing better afebrile taking po well pain controlled Review of Systems Constitutional: no fever, no chills and no anorexia Respiratory: no cough and no dyspnea Cardiovascular: no chest pain Gastrointestinal: + abdominal pain; no nausea, no vomiting and no change in bowel habits Neurologic: no localized weakness Psychiatric: no behavioral changes Physical Exam Constitutional: WD/WN, vitals as above Eyes: no scleral abnormality Respiratory: normal respiratory effort, lungs clear to auscultation Cardiovascular: RRR, no murmur, no edema Gastrointestinal (Abdomen): Inspection/Auscultation: abdomen normal to inspection and normal bowel sounds; abdomen not distended Percussion/Palpation: + abdomen tender and abdomen soft; no guarding and abdomen not rigid Musculoskeletal: Head/Neck/Chest: normocephalic and head atraumatic Skin: no rashes, warm and dry Results & Data Vital Signs (Past 12 Hours) Vital Signs Temp Pulse Resp BP BP Pulse Ox O2 Del Method 10/15/24 07:10 36.6 C 88 16 136/79 92 Room Air 10/14/24 23:17 36.9 C 84 18 132/81 92 Room Air
--- NOTE | 2024-10-15 08:58 | Discharge Summary ---
Date of Service October 15, 2024 Admission HPI Per Admitting Provider He notes the pain is primarily confined to the right lower quadrant. He has had fevers but he denies any nausea or vomiting. Patient says that the pain is improved when he lies still and is worse with certain movements. He says that he did have a prostate procedure in the past but from his description it sounds as though he he had a transurethral resection of the prostate. He notes his most recent oral intake was a ham sandwich at approximate 12:00 PM on 10/13/2024. He said he did have a sip of water at 6:30 PM. This is a 69-year-old male who presented to the emergency department secondary to abdominal pain that began 2 days ago. Since arrival to the emergency department this patient has had labs and imaging which independent reviewed. CBC revealed white blood cell count was elevated 21.3. Hemoglobin and hematocrit as well as platelet count were normal. Chemistry profile showed sodium was 130 with a potassium of 4.0. BUN and creatinine were both noted to be normal. Urinalysis was not indicative of infection. The patient underwent a CT scan of the abdomen pelvis that showed he had an appendicolith at the base of the appendix and the appendix was dilated to approximately 14 mm with surrounding fat stranding which interpreting radiologist felt was indicative of acute appendicitis. There is no evidence of rupture or abscess. At the time of my interview he was resting comfortably in bed he is in no distress. Principal Diagnosis acute appendicitis Discharge Exam Constitutional WD/WN, vitals as above Respiratory normal respiratory effort, lungs clear to auscultation Cardiovascular RRR, no murmur, no edema Gastrointestinal (Abdomen) Inspection/Auscultation: abdomen normal to inspection and normal bowel sounds; abdomen not distended Percussion/Palpation: + abdomen tender and abdomen soft; no guarding and abdomen not rigid Musculoskeletal Head/Neck/Chest: normocephalic and head atraumatic Skin no rashes, warm and dry Discharge Data Allergies Allergy/AdvReac Type Severity Reaction Status Date / Time tadalafil [From Cialis] Allergy Severe leg pain Verified 10/13/24 23:13 vardenafil [From Levitra] Allergy Intermediate leg pain Verified 10/13/24 09:40 temazepam [From Restoril] Allergy Unknown Swelling Verified 10/13/24 09:40 of Lip/Tongue/Throat gabapentin AdvReac Unknown Dizziness Verified 10/13/24 09:40 Wfyrwyf-NGG-[id number] Reductase AdvReac Unknown Dizziness Verified 10/13/24 09:40 Inhibitor Consultations 10/13/24 23:30 ED Decision to Admit Stat Procedures Performed Operation Date: 10/13/24 11:45 Actual Procedures p Laparoscopic Appendectomy(Not Applicable) - Brendan Pascual DO Ordered Studies 10/13/24 20:46 CT abd pelvis IV con only Stat Hospital Course (1) Acute appendicitis: Patient admitted with acute perforated appendicitis and underwent lap appendectomy. Maintained on IV antibiotics over 48hrs. He did well with diet and activity. He was discharged afebrile and good pain control. He had elevated TB which came down on day of discharge. Total Time Total Time Spent Total Time Spent (In Minutes): 15 Total Time Includes: Examination of the Patient and Discharge Planning Discharge Plan Discharge Items Patient Disposition: Home - Self-Care Reason For Visit: APPY Discharge Diagnosis: laparoscopic appendectomy Activity: As commented below Lifting: No more than 10 pounds Bathing Comment: you can shower . No soaking in pools/bath for 2 weeks Exercise/Sports: Wait until after follow-up appointment Driving/Machine Use: no driving if taking narcotic pain medication Non-emergency contact: Surgeon Call non-emergency contact if: you have any medication questions, your temperature is above 101.5, your wound has increased redness, your wound has increased drainage and your wound pain has increased Follow-up/Referrals: Kelin Murray MD [Primary Care Provider] - Brendan Pascual DO [Surgeon] - (call office for follow up appointment in 1-2 weeks ) Diet: Regular Addtl Attending Provider Instructions: You have surgical glue called dermabond on your surgical site incisions. You may shower with this on. This will tend to come off within a couple of weeks. Do not pick at it. You can keep a bandaid/ gauze dressing over where your adrian drain has been removed. Pending Studies at Discharge: Yes Studies:: surgical pathology Stand-Alone Forms: My [facility] [employer], Smoking Cessation Medications and DC Order Prescriptions: New amoxicillin-pot clavulanate 875-125 mg tablet 1 tab PO Q12H 7 Days Qty: 14 0RF oxycodone 5 mg tablet 5 - 10 mg PO .[id number] MDD no more than 6 tabs in 24hours PRN (Reason: pain) Qty: 15 0RF Continued ezetimibe 10 mg tablet 10 mg PO DAILY Qty: 90 1RF benzonatate 100 mg capsule See Rx Instructions .Route .COMPLEX Qty: 30 0RF Rx Instructions: take one to two tablets three times a day for cough (may make you sleepy) trazodone 100 mg tablet 100 mg PO DAILY Qty: 30 2RF magnesium glycinate 100 mg magnesium capsule 200 mg PO DAILY Qty: 30 0RF Repatha SureClick 140 mg/mL pen injector subcut mecobalamin (vitamin B12) 500 mcg tablet,chewable PO bupropion HCl 150 mg tablet sustained-release 12 hr 150 mg PO QAM Qty: 90 3RF doxycycline hyclate 100 mg capsule 100 mg PO BID 10 Days Qty: 20 0RF melatonin 10 mg capsule 10 mg PO HS PRN alpha lipoic acid 600 mg capsule 600 mg PO DAILY chlorhexidine gluconate 0.12 % mouthwash 15 ml buccal DAILY cholecalciferol (vitamin D3) 125 mcg (5,000 unit) capsule 125 mcg PO DAILY losartan 50 mg tablet 50 mg PO DAILY Qty: 90 2RF Discharge Orders: Discharge Order (Routine); Ordered 10/15/24 Ordered By: Adonay Ojeda Admission Data Admit Date/Time: 10/14/24 01:49 Attending Provider: Brendan Pascual Admit Provider: Brendan Pascual Primary Care Provider: Kelin Murray Other Providers: Brendan Pascual
[2024-10-15 14:26] VITALS: BP 132/78; PULSE 80; O2SAT 94
[2024-10-18 05:37] LABS: Babesia microti DNA Not Detected (Not Detected)
== END 2024-10-15 17:57 | disposition home or self-care (01) ==
LOC: ED 18:55 → INTOOBSV 10-14 01:49 → 3N 10-14 01:49
DX: I10 Essential (primary) hypertension; Z88.8 Allergy status to other drugs, medicaments and biological substances; Z79.899 Other long term (current) drug therapy; K35.80 Unspecified acute appendicitis